=== PATIENT | male | born 1990 | race Two or more races ===

== ENCOUNTER 2016-03-28 21:50 | Emergency (ER) | payer SELFPAY ==
[~2016-03-28] VITALS: Ht 162.6 cm; Wt 70.3 kg
[2016-03-28 22:06] VITALS: BP 128/66
[2016-03-28] MEDS ORDERED: IBUPROFEN 400 MG TABLET ONE (22:39)
[2016-03-28] MEDS ORDERED: IBUPROFEN 400 MG TABLET PO ONE (23:00)
== END 2016-03-29 00:43 | disposition home or self-care (01) ==
LOC: ER 21:53
DX: S09.90XA Unspecified injury of head, initial encounter (principal); S60.222A Contusion of left hand, initial encounter; W20.8XXA Other cause of strike by thrown, projected or falling object, initial encounter; Y93.66 Activity, soccer; Y92.9 Unspecified place or not applicable; Y99.9 Unspecified external cause status
CPT/HCPCS: 70450-TC; 73130-TC; A4606; Z7610

== ENCOUNTER 2021-09-08 20:32 | Emergency (ER) | payer MEDICAID ==
[~2021-09-08] VITALS: Ht 165.1 cm; Wt 77.1 kg
[2021-09-08 21:57] VITALS: BP 134/86
[2021-09-08] MEDS ORDERED: METOCLOPRAMIDE HCL 10 MG/2 ML VIAL ONE (22:12)
[2021-09-08] MEDS ORDERED: diphenhydrAMINE HCL 50 MG/ML VIAL ONE (22:12)
[2021-09-08] MEDS ORDERED: KETOROLAC TROMETHAMINE 15 MG/ML VIAL ONE (22:12)
[2021-09-08] MEDS ORDERED: METOCLOPRAMIDE HCL 10 MG/2 ML VIAL IV ONE (22:30)
[2021-09-08] MEDS ORDERED: IV NS 0.9% 1,000 ML BAG IV ONE (22:30)
[2021-09-08] MEDS ORDERED: KETOROLAC TROMETHAMINE INJ 30 MG/ML VIAL IV ONE (22:30)
[2021-09-08] MEDS ORDERED: diphenhydrAMINE HCL 50 MG/ML VIAL IV ONE (22:30)
== END 2021-09-08 22:31 | disposition home or self-care (01) ==
LOC: ER 20:47
DX: G43.909 Migraine, unspecified, not intractable, without status migrainosus (principal)
CPT/HCPCS: J1200; J1885; J2765; J7030

== ENCOUNTER 2022-10-14 01:29 | Emergency (ER) | payer MEDICAID ==
[~2022-10-14] VITALS: Ht 165.1 cm; Wt 84.4 kg
--- NOTE | 2022-10-14 02:00 | NUR ---
BIBS FOR C/O L SIDED CP AND DIZZINESS FOR THE PAST FEW MONTHS
[2022-10-14] MEDS ORDERED: IV NS 0.9% 1,000 ML BAG IV ONE (02:30)
--- NOTE | 2022-10-14 02:40 | NUR ---
PATIENT LEAVING AMA. WAIVER SIGNED. MD BEJARANO
[2022-10-14 02:56] VITALS: BP 121/78; TEMP 98.5; O2SAT 98
== END 2022-10-14 03:12 | disposition home or self-care (01) ==
LOC: ER 01:29
DX: R42 Dizziness and giddiness (principal); K21.9 Gastro-esophageal reflux disease without esophagitis; F17.200 Nicotine dependence, unspecified, uncomplicated